=== PATIENT | female | born 1990 | race Caucasian/White ===

== ENCOUNTER 2020-10-21 11:17 | Emergency (ER) | payer OTHER ==
[~2020-10-21] VITALS: Ht 165.1 cm; Wt 75.0 kg
[2020-10-21 11:39] VITALS: BP 147/86
[2020-10-21 12:06] LABS: BASO % 1 % (0-3); EOS # 0.2 x10^3/uL (0.0-0.7); EOS % 3 % (0-3); HEMATOCRIT 41.9 % (36.0-47.0); HEMOGLOBIN 14.3 g/dL (12.0-15.5); LYMPH # 2.4 x10^3/uL (1.0-4.8); LYMPH % 33 % (24-48); MEAN CORPUSCULAR HEMOGLOBIN 31 pg (25-35); MEAN CORPUSCULAR HGB CONC 34 g/dL (31-37); MEAN CORPUSCULAR VOLUME 89 fL (79-100); MONO # 0.4 x10^3/uL (0.0-1.1); MONO % 6 % (0-9); NEUT # 4.3 x10^3/uL (1.8-7.7); NEUT % 59 % (31-73); PLATELET COUNT 256 x10^3/uL (140-400); RED BLOOD COUNT 4.69 x10^6/uL (3.50-5.40); RED CELL DISTRIBUTION WIDTH 12.4 % (11.5-14.5); WHITE BLOOD COUNT 7.3 x10^3/uL (4.0-11.0)
[2020-10-21 12:14] LABS: CALCIUM 8.9 mg/dL (8.5-10.1); CREATININE 0.7 mg/dL (0.6-1.0); GFR 98.3; POTASSIUM 3.9 mmol/L (3.5-5.1)
[2020-10-21] MEDS ORDERED: EMTR1TAB8 PO (12:17)
[2020-10-21] MEDS ORDERED: RALT400T PO (12:17)
--- NOTE | 2020-10-21 12:18 | PHYS DOC ---
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 She states yesterday she heard some things fall over into her trunk so when she got home she checked and there was needles that had spilled out so she went to put them back in and they had been used. She states that one of the needle safety Come off and She Got Stuck in the right f ourth finger. She Has No Idea What Patient the Needle Was Used on. She States That She Needs to Be Checked for HIV and Hepatitis and She Wants Treatment. Patient Denies Any Pain. Patient has a history of cholecystectomy and hysterectomy. Review of Systems: Review of Systems: Constitutional: Denies fever or chills. [] Eyes: Denies change in visual acuity. [] HENT: Denies nasal congestion or sore throat. [] Respiratory: Denies cough or shortness of breath. [] Cardiovascular: Denies chest pain or edema. [] GI: Denies abdominal pain, nausea, vomiting, bloody stools or diarrhea. [] : Denies dysuria. [] Musculoskeletal: Denies back pain or joint pain. [] Integument: Denies rash. Right fourth finger puncture wound. [] Neurologic: Denies headache, focal weakness or sensory changes. [] Endocrine: Denies polyuria or polydipsia. [] Lymphatic: Denies swollen glands. [] Psychiatric: Denies depression or anxiety. [] Heart Score: C/O Chest Pain: No Risk Factors: Risk Factors: DM, Current or recent (<one month) smoker, HTN, HLP, family history of CAD, obesity. Risk Scores: Score 0 - 3: 2.5% MACE over next 6 weeks - Discharge Home Score 4 - 6: 20.3% MACE over next 6 weeks - Admit for Clinical Observation Score 7 - 10: 72.7% MACE over next 6 weeks - Early Invasive Strategies Allergies: Allergies: Allergies Coded Allergies Type Severity Reaction Last Updated Verified diphenhydramine Allergy Intermediate Shortness of Air 10/21/20 Yes hydrocodone Allergy Intermediate Hives 10/21/20 Yes naproxen Allergy Intermediate Hives 10/21/20 Yes Uncoded Allergies Type Severity Reaction Last Updated Verified PENICLLIN Allergy Intermediate Hives 10/21/20 Physical Exam: PE: Constitutional: Well developed, well nourished, no acute distress, non-toxic appearance. [] HENT: Normocephalic, atraumatic, bilateral external ears normal, oropharynx moist, no oral exudates, nose normal. [] Eyes: PERRLA, EOMI, conjunctiva normal, no discharge. [] Neck: Normal range of motion, no tenderness, supple, no stridor. [] Cardiovascular:Heart rate regular rhythm, no murmur [] Lungs & Thorax: Bilateral breath sounds clear to auscultation [] Abdomen: Bowel sounds normal, soft, no tenderness, no masses, no pulsatile masses. [] Skin: Warm, dry, no erythema, no rash. Right fourth finger superficial puncture wound [] Back: No tenderness, no CVA tenderness. [] Extremities: No tenderness, no cyanosis, no clubbing, ROM intact, no edema. [] Neurologic: Alert and oriented X 3, normal motor function, normal sensory function, no focal deficits noted. [] Psychologic: Affect normal, judgement normal, mood normal. [] Current Patient Data: Vital Signs: Vital Signs Date Time Temp Pulse Resp B/P (MAP) Pulse Ox O2 Delivery O2 Flow Rate FiO2 10/21/20 11:39 98.1 96 18 147/86 100 Room Air 98.1 EKG: EKG: [] Radiology/Procedures: Radiology/Procedures: [] Course & Med Decision Making: Course & Med Decision Making Pertinent Labs and Imaging studies reviewed. (See chart for details) See HPI. Alert and oriented x4. Ambulatory steady gait. Skin pink warm and dry. No tenderness. There is a superficial needlestick to the right fourth pad of finger. Speaks in full clear sentences. No swelling or deformity to the finger. Radial pulse strong present. Cap refill less than 2 seconds. Patient blood is drawn for HIV and hepatitis panel along with a CBC and CMP. Patient will be started on medications. I did tell the patient that these medications can be very hard on the stomach and make you sick. Patient states that she still wants to be treated prophylactically. Patient did not come with any kind of work comp paperwork. States that she did fill out work on paperwork with her job. [] Ritchie Disclaimer: Ritchie Disclaimer: This electronic medical record was generated, in whole or in part, using a voice recognition dictation system. Departure Departure Impression: Primary Impression: Needle stick injury of finger Disposition: HOME / SELF CARE / HOMELESS Condition: STABLE Patient Instructions: Needle Stick Injury Additional Instructions: Follow-up with work comp. With the medications that you are on you need a CBC and a CMP checked in 2 weeks into your treatment. Keep your hands clean and dry. Remember these medications will be hard on your stomach symmetry take them with a meal. Drink plenty of fluids. Scripts Raltegravir Potassium (ISENTRESS) 400 Mg Tablet 1 TAB PO BID for 28 Days, #56 TAB Prov: JUSTIN MORGAN APRN 10/21/20 Emtricitabine/Tenofovir (TRUVADA 200 MG-300 MG TABLET) 1 Each Tablet 1 TAB PO DAILY for 28 Days, #28 TAB 0 Refills Prov: JUSTIN MORGAN APRN 10/21/20 JUSTIN MORGAN APRN Oct 21, 2020 12:18
[2020-10-21 12:20] LABS: ALBUMIN 3.4 g/dL (3.4-5.0); ALBUMIN/GLOBULIN RATIO 0.9 (1.0-1.7); TOTAL BILIRUBIN 0.3 mg/dL (0.2-1.0); TOTAL PROTEIN 7.1 g/dL (6.4-8.2)
[2020-10-21] MEDS ORDERED: RALTEGRAVIR 400 MG TABLET. PO ONE (13:30)
[2020-10-21] MEDS ORDERED: EMTRICITAB/TENOFOVIR 200/300MG TABLET. PO ONE (13:30)
[2020-10-21] MEDS ORDERED: ONDANSETRON ODT 4 MG TAB.RAPDIS. PO ONE (13:30)
== END 2020-10-21 13:11 | disposition home or self-care (01) ==
LOC: ER 11:17
DX: S61.234A Puncture wound without foreign body of right ring finger without damage to nail, initial encounter (principal); Z88.0 Allergy status to penicillin; Z88.5 Allergy status to narcotic agent; Z88.8 Allergy status to other drugs, medicaments and biological substances; W45.0XXA Nail entering through skin, initial encounter; Y93.89 Activity, other specified; Y92.89 Other specified places as the place of occurrence of the external cause; Y99.8 Other external cause status
CPT/HCPCS: 36415; 80053; 85025; 86703; 86705; 86709; 86803; 87340; 99284